=== PATIENT | female | born 1965 | race African-American/Black ===

== ENCOUNTER 2016-10-16 20:11 | Emergency (ER) | payer OTHER ==
[2016-10-16 20:19] VITALS: BP 129/66; PULSE 65; TEMP 97.5; BMI 35.1
--- NOTE | 2016-10-16 20:19 | PDOC ---
Rapid Medical Evaluation Time Seen by Provider: 10/16/16 20:12 Medical Evaluation: Allergies Allergy/AdvReac Type Severity Reaction Status Date / Time butorphanol tartrate Allergy Verified 11/29/15 22:55 [From Stadol] codeine Allergy Verified 11/29/15 22:55 Penicillins Allergy Verified 11/29/15 22:54 10/16/16 20:13 I have performed a brief in-person evaluation of this patient. Ms. Gonzalez is a 51 yo RHD F who presents to the ER with a complaint of Left thumb pain Pt states she was running away from a grasshopper at a hotel in [place] she ran through a door and the door slammed on her finger/jammed her finger Injury occurred at the beginning of Sep 04 Apparently no fracture, was placed in thumb spica She has been putting it on and taking it off but the pain has worsened Pain had now spread up her arm and into her neck Was started on Naproxen initially, stopped taking it because it feels like its is eating through her stomach lining On examination: left thenar eminence tenderness to palpation No scaphoid tenderness to palpation Limited range of motion of thumb due to pain No bruising or erythema I have ordered the following: Xray hand Pt anaphylaxes to codeine, will not give narcotic Naproxen --> gastric irritation The patient will proceed to the Fast Track for further evaluation. 10/16/16 20:20
[2016-10-16] MEDS ORDERED: predniSONE 20 MG TABLET (UD) PO ONE (21:45)
[2016-10-16] MEDS ORDERED: predniSONE 20 MG TABLET (UD) ONE (21:47)
--- NOTE | 2016-10-16 21:49 | PDOC ---
History of Present Illness - General Chief Complaint: Injury Stated Complaint: INJURY Time Seen by Provider: 10/16/16 20:12 History Source: Patient Exam Limitations: No Limitations - History of Present Illness Initial Comments: 10/16/16 21:49 51 yr female left hand dominant c/o jamming left thumb on aug 23 2016 in [place]. Pt went to ER told negative fracture and given thumb spica splint. t has continued pain, not using the splint. Upper Extremity Pain Location: left: thumb Past History - Travel Traveled outside of the country in the last 30 days: Yes - Past Medical History Allergies/Adverse Reactions: Allergies Allergy/AdvReac Type Severity Reaction Status Date / Time butorphanol tartrate Allergy Verified 10/16/16 20:15 [From Stadol] codeine Allergy Verified 10/16/16 20:15 Penicillins Allergy Verified 10/16/16 20:15 Home Medications: Ambulatory Orders Prednisone [Deltasone -] 40 mg PO DAILY #10 tablet 10/16/16 Other medical history: denies - Psycho/Social/Smoking Cessation Hx Suicidal Ideation: No Smoking History: Current some day smoker Have you smoked in the past 12 months: Yes Number of Cigarettes Smoked Daily: 3 Information on smoking cessation initiated: Yes 'Breaking Loose' booklet given: 10/16/16 Hx Alcohol Use: No Drug/Substance Use Hx: No Review of Systems - Review of Systems Able to Perform ROS?: Yes Is the patient limited Congolese proficient: No Musculoskeletal: Yes: Symptoms Reported *Physical Exam - Vital Signs Last Vital Signs Temp Pulse Resp BP Pulse Ox 97.5 F L 65 18 129/66 100 10/16/16 20:16 10/16/16 20:16 10/16/16 20:16 10/16/16 20:16 10/16/16 20:16 - Physical Exam General Appearance: Yes: Nourished, Appropriately Dressed HEENT: positive: EOMI, ROBERT Extremity: positive: Normal Capillary Refill, Normal Inspection, Tender (base of thumb left hand, pt is able to fully range with limitation due to pain, sensation intact) Medical Decision Making - Medical Decision Making 10/16/16 21:46 cc: left thumb pain after injury August 23 2016. had negative xray done in [place] pt has continued pain when she touches the tip of thumb pt is left handed no redness, no swelling, nv intact, sensation intact. will xray prednisone for pain (pt allergy to codeine, states NSADIS cause stomach upset ) refer to and finger cot dressing placed at pt request so she does not bump the finger) 10/16/16 21:50 *DC/Admit/Observation/Transfer Diagnosis at time of Disposition: Injury, thumb Qualifiers: Encounter type: initial encounter Laterality: left Qualified Code(s): S69.92XA - Unspecified injury of left wrist, hand and finger(s), initial encounter - Discharge Dispostion Disposition: HOME Condition at time of disposition: Good - Prescriptions Prescriptions: Prednisone [Deltasone -] 40 mg PO DAILY #10 tablet - Referrals Referrals: Hong Hilario MD [Staff Physician] - - Patient Instructions Additional Instructions: please follow with the hand orthopedist call tomorrow to make appointment take prednisone as directed, next dose tomorrow
== END 2016-10-16 21:52 | disposition home or self-care (01) ==
LOC: JERFT 20:11
DX: S69.92XA Unspecified injury of left wrist, hand and finger(s), initial encounter (principal); F17.210 Nicotine dependence, cigarettes, uncomplicated; W22.8XXA Striking against or struck by other objects, initial encounter; Y93.89 Activity, other specified; Y92.9 Unspecified place or not applicable
CPT/HCPCS: 73130-TC-LT; 99281-25

== ENCOUNTER 2019-01-08 03:00 | Emergency (ER) | payer OTHER ==
--- NOTE | 2019-01-08 03:47 | PDOC ---
History of Present Illness - General Stated Complaint: SWELLING Time Seen by Provider: 01/08/19 03:19 - History of Present Illness Initial Comments: 01/08/19 04:30 53f with pmh of asthma presents to the ED with itchy rash over thighs and arms since 9pm. Never had an anaphylactic shock before but has had similar reactions to undetermined allergens. Thinks she possibly got into contact with her aunt's new dog and cat. No difficulty breathing or swallowing. Took on Benadryl tablet before coming here. Past History - Past Medical History Allergies/Adverse Reactions: Allergies Allergy/AdvReac Type Severity Reaction Status Date / Time butorphanol tartrate Allergy Verified 01/08/19 03:58 [From Stadol] codeine Allergy Verified 01/08/19 03:58 Penicillins Allergy Verified 01/08/19 03:58 Home Medications: Ambulatory Orders Epinephrine [Epipen 2-Zeferino] 0.3 mg IJ ASDIR #1 kit 01/08/19 Gabapentin [Neurontin] 750 mg PO PRN 01/08/19 - Suicide/Smoking/Psychosocial Hx Smoking History: Current some day smoker Have you smoked in the past 12 months: Yes Number of Cigarettes Smoked Daily: 3 'Breaking Loose' booklet given: 10/16/16 Hx Alcohol Use: No Drug/Substance Use Hx: No Review of Systems - Review of Systems Able to Perform ROS?: Yes Is the patient limited Guinean proficient: No Constitutional: No: Symptoms Reported HEENTM: No: Symptoms Reported Respiratory: No: Symptoms reported Cardiac (ROS): No: Symptoms Reported ABD/GI: No: Symptoms Reported : No: Symptoms Reported Musculoskeletal: No: Symptoms Reported Integumentary: Yes: See HPI All Other Systems: Reviewed and Negative *Physical Exam - Physical Exam General Appearance: Yes: Obese HEENT: positive: EOMI, ROBERT, Normal ENT Inspection Respiratory/Chest: positive: Lungs Clear, Normal Breath Sounds. negative: Chest Tender, Respiratory Distress Cardiovascular: positive: Regular Rhythm, Regular Rate, S1, S2 Gastrointestinal/Abdominal: positive: Normal Bowel Sounds, Flat, Soft. negative : Tender Extremity: positive: Normal Capillary Refill, Normal Inspection, Normal Range of Motion Integumentary: positive: Normal Color, Dry, Warm, Other (raised pruritic urticarial plaques over inner thighs and arms. ) Neurologic: positive: Fully Oriented, Alert, Normal Mood/Affect Medical Decision Making - Medical Decision Making 01/08/19 04:39 53F with allergic reaction to unknown allergen causing new onset urticaria. Giving appropriate dose of benadryl. Not necessary to give steroid. Very mild symptoms. Feels much better with medication, will send Rx for epipen and follow up with primary physician. *DC/Admit/Observation/Transfer Diagnosis at time of Disposition: Urticaria - Discharge Dispostion Disposition: HOME Condition at time of disposition: Improved Decision to Admit order: No - Prescriptions Prescriptions: Epinephrine [Epipen 2-Zeferino] 0.3 mg IJ ASDIR #1 kit - Referrals Referrals: Dwayne Rowe [Primary Care Provider] - - Patient Instructions Printed Discharge Instructions: DI for Hives Additional Instructions: Come back to the emergency department for any new, worsening or concerning symptoms. Follow up with you primary care provider within the next 3-4 days. - Post Discharge Activity
[2019-01-08 03:58] VITALS: PULSE 71; TEMP 97.9; BMI 34.7
[2019-01-08 04:14] VITALS: BP 125/65
--- NOTE | 2019-01-08 04:21 | PDOC ---
Attending Attestation - Resident Resident Name: Edgard Rogers - ED Attending Attestation I have performed the following: I have examined & evaluated the patient, The case was reviewed & discussed with the resident, I agree w/resident's findings & plan, Exceptions are as noted - HPI HPI: 01/08/19 04:47 53F pmh of asthma here with pruritic rash over bilateral thighs starting this evening. Only novel exposure is her aunt's new dog and cat. No known allergies but states she has had similar reactions and has not pursued it. No other complaints, no cp, sob, dizziness, lightheadedness, cough, swelling - Physicial Exam PE: 01/08/19 04:49 Agree with exam as documented by resident - Medical Decision Making 01/08/19 04:49 Allergic reaction, no airway involvement, no angioedema, isolated, localized skin reaction symptomatic tx, re-eval symptom resolution on re-eval dc home with pcp f/u
== END 2019-01-08 04:58 | disposition home or self-care (01) ==
LOC: JER 03:00
PROC: 3E033GC Introduction of Other Therapeutic Substance into Peripheral Vein, Percutaneous Approach (ICD-10-PCS; principal; 2019-01-08)
DX: L50.9 Urticaria, unspecified (principal); Z72.0 Tobacco use
CPT/HCPCS: 96374; 99283-25

== ENCOUNTER 2019-01-08 14:41 | Emergency (ER) | payer OTHER ==
[2019-01-08 14:54] VITALS: BMI 35.4
[2019-01-08] MEDS ORDERED: DEXAMETHASONE SOD PHOSPHATE 10 MG/1 ML VIAL IVPUSH ONE (15:14)
[2019-01-08] MEDS ORDERED: FAMOTIDINE 20 MG/50 ML IVPB 20 MG/50 ML MG IVPB ONE ×2 (15:14→15:35)
--- NOTE | 2019-01-08 15:14 | PDOC ---
History of Present Illness - General Chief Complaint: Allergic Reaction Stated Complaint: RASHES Time Seen by Provider: 01/08/19 15:11 History Source: Patient Exam Limitations: No Limitations - History of Present Illness Initial Comments: 53 yo F presents with diffuse itchy rash since last night. Unknown exposure- did not use any new detergents, lotions. Did not eat any new foods. No prior similar symptoms. She was evaluated for the same last night, given benadryl and discharged home with epi-pen. Now returns with continued hives. Took benadryl 25 mg at 2pm. Past History - Past Medical History Allergies/Adverse Reactions: Allergies Allergy/AdvReac Type Severity Reaction Status Date / Time butorphanol tartrate Allergy Verified 01/08/19 03:58 [From Stadol] codeine Allergy Verified 01/08/19 03:58 Penicillins Allergy Verified 01/08/19 03:58 Home Medications: Ambulatory Orders Epinephrine [Epipen 2-Zeferino] 0.3 mg IJ ASDIR #1 kit 01/08/19 Gabapentin [Neurontin] 750 mg PO PRN 01/08/19 COPD: No - Suicide/Smoking/Psychosocial Hx Smoking History: Never smoked Have you smoked in the past 12 months: Yes Number of Cigarettes Smoked Daily: 3 'Breaking Loose' booklet given: 10/16/16 Hx Alcohol Use: No Drug/Substance Use Hx: No Review of Systems - Review of Systems Able to Perform ROS?: Yes Comments:: GENERAL/CONSTITUTIONAL: No fever or chills. No weakness. HEAD, EYES, EARS, NOSE AND THROAT: No change in vision. No ear pain or discharge. No sore throat. CARDIOVASCULAR: No chest pain or shortness of breath. RESPIRATORY: No cough, wheezing, or hemoptysis. GASTROINTESTINAL: No nausea, vomiting, diarrhea or constipation. GENITOURINARY: No dysuria, frequency, or change in urination. MUSCULOSKELETAL: No joint or muscle swelling or pain. No neck or back pain. SKIN: +Rash. NEUROLOGIC: No headache, vertigo, loss of consciousness, or change in strength/ sensation. ENDOCRINE: No increased thirst. No abnormal weight change. HEMATOLOGIC/LYMPHATIC: No anemia, easy bleeding, or history of blood clots. ALLERGIC/IMMUNOLOGIC: +Hives. *Physical Exam - Vital Signs Last Vital Signs Temp Pulse Resp BP Pulse Ox 97.9 F 81 20 117/68 98 01/08/19 14:45 01/08/19 14:45 01/08/19 14:45 01/08/19 14:45 01/08/19 14:45 - Physical Exam Comments: GENERAL: Awake, alert, and fully oriented, in no acute distress HEAD: No signs of trauma EYES: PERRLA, EOMI, sclera anicteric, conjunctiva clear ENT: Auricles normal inspection, hearing grossly normal, nares patent, oropharynx clear without exudates. Moist mucosa. No mucosal lesions NECK: Normal ROM, supple, no lymphadenopathy, JVD, or masses LUNGS: Breath sounds equal, clear to auscultation bilaterally. No wheezes, and no crackles HEART: Regular rate and rhythm, normal S1 and S2, no murmurs, rubs or gallops ABDOMEN: Soft, nontender, normoactive bowel sounds. No guarding, no rebound. No masses EXTREMITIES: Normal range of motion, no edema. No clubbing or cyanosis. No cords, erythema, or tenderness NEUROLOGICAL: Cranial nerves II through XII grossly intact. Normal speech, normal gait. Motor and sensation intact SKIN: Warm, Dry, normal turgor. +Diffuse urticarial rash ED Treatment Course - LABORATORY CBC & Chemistry Diagram: 01/08/19 15:45 01/08/19 15:45 Medical Decision Making - Medical Decision Making 01/08/19 15:18 Pt with urticarial rash, not improving with benadryl. Given how diffuse the rash is, will give steroids IV. Will also give benadryl 25 (as she only took 25 mg at 2pm) and pepcid. 01/08/19 16:46 Rash significantly improved, patient states she is feeling much better. Will DC home with prednisone as well as referral to director design for skin testing. *DC/Admit/Observation/Transfer Diagnosis at time of Disposition: Urticaria - Discharge Dispostion Disposition: HOME Condition at time of disposition: Improved Decision to Admit order: No - Referrals - Patient Instructions Printed Discharge Instructions: DI for Hives - Post Discharge Activity
[2019-01-08] MEDS ORDERED: DEXAMETHASONE SOD PHOSPHATE 10 MG/1 ML VIAL ONE (15:35)
[2019-01-08 16:26] LABS: EOS % 1.1 % (0-4.5); HEMATOCRIT 39.3 % (32.4-45.2); HEMOGLOBIN 12.9 GM/dL (10.7-15.3); LYMPH % 30.8 % (8-40); MCH 27.9 pg (25.7-33.7); MCHC 32.8 g/dl (32.0-36.0); MEAN CELL VOLUME 84.9 fl (80-96); MONO % 3.7 % (3.8-10.2); NEUT % 64.4 % (42.8-82.8); RBC 4.63 M/mm3 (3.60-5.2); RDW 13.7 % (11.6-15.6)
[2019-01-08 16:51] LABS: BLOOD UREA NITROGEN 10.4 mg/dL (7-18); CALCIUM 8.9 mg/dL (8.5-10.1); CREATININE 1.1 mg/dL (0.55-1.3); POTASSIUM 3.8 mmol/L (3.5-5.1)
[2019-01-08 18:40] VITALS: BP 110/78; PULSE 74; TEMP 98.2
[2019-01-08 20:04] LABS: PLATELET COUNT 331 K/MM3 (134-434); PLATELET ESTIMATE ADEQUATE
== END 2019-01-08 17:30 | disposition home or self-care (01) ==
LOC: JER 14:41
PROC: 3E033GC Introduction of Other Therapeutic Substance into Peripheral Vein, Percutaneous Approach (ICD-10-PCS; principal; 2019-01-08)
DX: L50.9 Urticaria, unspecified (principal); Z72.0 Tobacco use
CPT/HCPCS: 36415; 80048; 85025; 96365; 96375; 99283-25; J1100

== ENCOUNTER 2019-01-09 18:41 | Emergency (ER) | payer OTHER ==
[2019-01-09 18:47] VITALS: TEMP 97.6; BMI 35.0
--- NOTE | 2019-01-09 18:56 | PDOC ---
History of Present Illness - General Chief Complaint: Allergic Reaction Stated Complaint: ALLERGIC REACTION Time Seen by Provider: 01/09/19 18:56 - History of Present Illness Initial Comments: 53 year old female with PMH of lumbar disk disease (on physical therapy and occasionally gabapentin) from out of town presenting with intermittent rash on her arms, legs, and chest despite Benadryl usage. States that she was here yesterday and given steroids, Benadryl, and Pepcid with good relief of her symptoms. She states she was taking her steroids and Benadryl at home but is still symptomatic. [place] has been staying in her Grandmother's house for the past two days which contains dogs and cats. Additionally, she states that the property has been sprayed with some chemical pesticide. Denies cough, respiratory difficulty, nausea, vomiting , or other symptoms. She does not have any known allergies and has taken no new medications or tried no perfumes etc. 01/09/19 19:15 Past History - Past Medical History Allergies/Adverse Reactions: Allergies Allergy/AdvReac Type Severity Reaction Status Date / Time butorphanol tartrate Allergy Verified 01/09/19 19:52 [From Stadol] codeine Allergy Verified 01/09/19 19:52 Penicillins Allergy Verified 01/09/19 19:52 Home Medications: Ambulatory Orders Epinephrine [Epipen 2-Zeferino] 0.3 mg IJ ASDIR #1 kit 01/08/19 Gabapentin [Neurontin] 750 mg PO PRN 01/08/19 predniSONE [Deltasone -] 20 mg PO DAILY #16 tablet 01/09/19 COPD: No - Immunization History Immunization Up to Date: No - Suicide/Smoking/Psychosocial Hx Smoking History: Never smoked Have you smoked in the past 12 months: No Number of Cigarettes Smoked Daily: 3 Information on smoking cessation initiated: No 'Breaking Loose' booklet given: 10/16/16 Hx Alcohol Use: No Drug/Substance Use Hx: No Review of Systems - Review of Systems Constitutional: No: Chills, Diaphoresis, Fever HEENTM: No: Eye Pain, Blurred Vision, Tearing Respiratory: No: Cough, Orthopnea, Productive cough Cardiac (ROS): No: Chest Pain, Edema, Irregular Heart Rate ABD/GI: No: Diarrhea, Nausea, Vomiting : No: Burning, Dysuria, Discharge Musculoskeletal: Yes: Back Pain, Joint Pain *Physical Exam - Vital Signs Last Vital Signs Temp Pulse Resp BP Pulse Ox 97.6 F 90 18 108/69 96 01/09/19 18:42 01/09/19 18:42 01/09/19 18:42 01/09/19 18:42 01/09/19 18:42 - Physical Exam General Appearance: Yes: Nourished, Appropriately Dressed. No: Apparent Distress HEENT: positive: EOMI, ROBERT, Normal ENT Inspection, Normal Voice Neck: positive: Trachea midline, Normal Thyroid, Supple. negative: Tender, Rigid Respiratory/Chest: positive: Lungs Clear, Normal Breath Sounds, Accessory Muscle Use. negative: Chest Tender, Respiratory Distress Cardiovascular: positive: Regular Rhythm, Regular Rate Gastrointestinal/Abdominal: positive: Normal Bowel Sounds, Flat, Soft. negative : Tender Lymphatic: negative: Adenopathy, Tenderness Musculoskeletal: positive: Normal Inspection. negative: Decreased Range of Motion Extremity: positive: Normal Capillary Refill, Normal Inspection, Normal Range of Motion. negative: Tender Integumentary: positive: Warm, Erythema, Hives (across upper arms cirumferentially and upper legs). negative: Normal Color, Dry Neurologic: positive: Fully Oriented, Alert, Normal Mood/Affect, Normal Response , Motor Strength 5/5 Medical Decision Making - Medical Decision Making 53 year old female with repeat visit for allergic reaction despite use of steroids and Benadryl orally. It seems that patient was taking half of her steroid dose because she admitted to only taking "one pill" which is only 20 mg according to her home med prescription. She should have taken 40 MG. Regardless , she improved in our ED with 60 mg steroids, Benadryl 50 IV, and Pepcid + topical Benadryl. Sent home with prednisone increased to 60 x 3 days , 40x 3 days then 20 x 2 days. Also instructed to wash clothes, sheets, and avoid dogs/ cats. 01/09/19 21:18 *DC/Admit/Observation/Transfer Diagnosis at time of Disposition: Allergic reaction Qualifiers: Encounter type: subsequent encounter Qualified Code(s): T78.40XD - Allergy, unspecified, subsequent encounter - Discharge Dispostion Disposition: HOME Condition at time of disposition: Improved Decision to Admit order: No - Prescriptions Prescriptions: predniSONE [Deltasone -] 20 mg PO DAILY #16 tablet - Referrals - Patient Instructions Printed Discharge Instructions: Allergy Testing Additional Instructions: Please wash your clothes and your sheets. Please avoid the dogs and the cats. Take your steroids as follows : 3 tablets (60 mg) a day for three days then 2 tablets a day (4o MG ) for 2 days, then 1 tablet a day (20 mg) for two days. Please use Benadryl as needed. Please use the epi pen if you have trouble breathing. Please follow up with your physician and let them know what happened. You may need allergy testing. Please return to the ED if you have new or worsening symptoms. - Post Discharge Activity
[2019-01-09] MEDS ORDERED: methylPREDNISolone NA SUCC 125 MG/2 ML VIAL IVPB ONE (19:09)
[2019-01-09] MEDS ORDERED: FAMOTIDINE 20 MG/50 ML IVPB 20 MG/50 ML MG IVPB ONE ×2 (19:18→19:21)
[2019-01-09] MEDS ORDERED: methylPREDNISolone NA SUCC 125 MG/2 ML VIAL ONE (19:19)
--- NOTE | 2019-01-09 20:29 | PDOC ---
Documentation entered by Hardy Wilkerson SCRIBE, acting as scribe for Miguel Ángel Armendariz MD. Miguel Ángel Armendariz MD: This documentation has been prepared by the Rock harman Collisia, SCRIBE, under my direction and personally reviewed by me in its entirety. I confirm that the documentation accurately reflects all work, treatment, procedures, and medical decision making performed by me. Attending Attestation - Resident Resident Name: Atul Linton - ED Attending Attestation I have performed the following: I have examined & evaluated the patient, The case was reviewed & discussed with the resident, I agree w/resident's findings & plan, Exceptions are as noted - HPI HPI: 01/09/19 20:06 53 year old female presents with allergic reaction. The patient was recently here in the ED yesterday. Stated that she was visiting her mother who had dogs. Had developed diffuse urticaria and visited the ED. Received benadryl and prednisone 40 mg. Symptoms drastically improved but when she returned home, she was with the dogs and the symptoms returned. Pt has no airway, GI or cardiac symptoms. Returned to the ED for an evaluation 01/09/19 20:12 The patient is a 53 year old female with a significant past medical history of lumbar spine disc disease, who presents to the emergency department with an allergic reaction for a few days. The patient reports that she was recently seen in the ED yesterday for a skin rash that she noted spread throughout her body. She states that in the ED yesterday she was given benadryl and sent home with steroids of which she took last night and earlier today. The patient states that when she left the ED her rash had cleared up but after she went back to her mother's house around some known dogs she noticed that she began to break out in rashes again and they had worsened. The patient states that she believes that the dog is causing her reaction but states that she has been around it in the past. She denies any chest pain, shortness of breath, headache or dizziness. The patient denies any fever, chills, nausea, vomiting, diarrhea, constipation or urinary symptoms. The patient denies any other complaints. - Physicial Exam PE: 01/09/19 20:09 GENERAL: Awake, alert, and fully oriented, in no acute distress HEAD: No signs of trauma EYES: EOMI, sclera anicteric, conjunctiva clear ENT: Auricles normal inspection, hearing grossly normal, nares patent, Moist mucosa NECK: Normal ROM, supple, EXTREMITIES: Normal range of motion, no edema. No clubbing or cyanosis. No cords, erythema, or tenderness NEUROLOGICAL: Cranial nerves II through XII grossly intact. Normal speech, normal gait SKIN: Diffuse urticaria throughout her body. - Medical Decision Making 01/09/19 20:10 Vital Signs Temp Pulse Resp BP Pulse Ox 97.6 F 90 18 108/69 96 01/09/19 18:42 01/09/19 18:42 01/09/19 18:42 01/09/19 18:42 01/09/19 18:42 Pt likely urticaria 2/2 to her dog. Pt already has an epi-pen at home. I instructed pt to avoid the dogs and to follow up with an window machine operator. Will increase her prednisone to 60 mg daily for 5 days. Return precautions given for difficulty breathing, throat closing.
[2019-01-09 20:51] VITALS: BP 110/72; PULSE 82
== END 2019-01-09 20:51 | disposition home or self-care (01) ==
LOC: JER 18:41
PROC: 3E033GC Introduction of Other Therapeutic Substance into Peripheral Vein, Percutaneous Approach (ICD-10-PCS; principal; 2019-01-09)
PROC: 3E033GC Introduction of Other Therapeutic Substance into Peripheral Vein, Percutaneous Approach (ICD-10-PCS; 2019-01-09)
PROC: 3E0333Z Introduction of Anti-inflammatory into Peripheral Vein, Percutaneous Approach (ICD-10-PCS; 2019-01-09)
DX: T78.40XD Allergy, unspecified, subsequent encounter (principal)
CPT/HCPCS: 96365; 96375; 99282-25

== ENCOUNTER 2019-01-11 03:26 | Emergency (ER) | payer OTHER | END 2019-01-11 03:58 | disposition home or self-care (01) | LOC: FER 03:26 ==